=== PATIENT | male | born 1995 | race Caucasian/White ===

== ENCOUNTER 2020-08-19 20:17 | Emergency (ER) | payer OTHER ==
[2020-08-19 20:29] VITALS: BP 159/93; PULSE 89; TEMP 97.2; BMI 30.3
--- OUTSIDE RECORDS SUMMARY | 2020-08-19 20:45 | XMS ---
:1995 Author Organization [facility] Support Name Relationship Address Phone [employer] Unavailable [address] [place] [address] [place] [address] DENNIS ALONSO MOTHER [address] [place] [address] Re-disclosure Warning The records that you are about to access may contain information from federally- assisted alcohol or drug abuse programs. If such information is present, then the following federally mandated warning applies: This information has been disclosed to you from records protected by federal confidentiality rules (42 CFR part 2). The federal rules prohibit you from making any further disclosure of this information unless further disclosure is expressly permitted by the written consent of the person to whom it pertains or as otherwise permitted by 42 CFR part 2. A general authorization for the release of medical or other information is NOT sufficient for this purpose. The Federal rules restrict any use of the information to criminally investigate or prosecute any alcohol or drug abuse patient.The records that you are about to access may contain highly sensitive health information, the redisclosure of which is protected by Article 27-F of the [facility] Public Health law. If you continue you may haveaccess to information: Regarding HIV / AIDS; Provided by facilities licensed or operated by the [facility] Office of Mental Health; or Provided by the [facility] Office for People With Developmental Disabilities. If such information is present, then the following [facility] mandated warning applies: This information has been disclosed to you from confidential records which are protected by state law. State law prohibits you from making any further disclosure of this information without the specific written consent of the person to whom it pertains, or as otherwise permitted by law. Any unauthorized further disclosure in violation of state law may result in a fine or snf sentence or both. A general authorization for the release of medical or other information is NOT sufficient authorization for further disclosure. Insurance Providers Payer name Policy type / Policy ID Covered Covered constitution party's Policy Plan Coverage type constitution party ID relationship to Nash Information nash ALEX EXC [id number] SP [id number]
--- NOTE | 2020-08-19 21:07 | PDOC ---
History of Present Illness - General Chief Complaint: Foreign Body (FB) Stated Complaint: PAIN IN LT HAND History Source: Patient Exam Limitations: No Limitations - History of Present Illness Initial Comments: 08/19/20 21:01 Patient is a 25-year-old male with no past medical history here with complaints of foreign body in his left index finger. States that 2 week ago he was hitting a metallic object with a hammer when the hammer slipped on a piece of sharp from the metallic object got lodged in his finger. States that initially did not think that there was anything here but when he touched the area he had pain. He opened the area with a razor after a few days of the injury but was unable to get this foreign body out. The area was healing and the pain was resolving but mother insisted on him going to have it evaluated. He therefore went to urgent care today, x-ray was done, foreign body noted, and so that the area was opened again. At the urgent care they were unable to retrieve the foreign body. Patient was discharged from urgent care with the promise that they will arrange for the patient to go to a hand specialist. Patient states that he could not wait for tomorrow and so has come to the emergency room for further evaluation and to see a hand specialist. Tetanus is up-to-date. PMHX: as above ALL: NKDA GENERAL/CONSTITUTIONAL: [No fever or chills. No weakness. No weight change.] HEAD, EYES, EARS, NOSE AND THROAT: [No change in vision. No ear pain or discharge. No sore throat.] MUSCULOSKELETAL: [No joint or muscle swelling or pain. No neck or back pain.] SKIN AND BREASTS: [No rash or easy bruising.] NEUROLOGIC: [No headache, vertigo, loss of consciousness, or loss of sensation.] ENDOCRINE: [No increased thirst. No abnormal weight change.] HEMATOLOGIC/LYMPHATIC: [No anemia, easy bleeding, or history of blood clots.] ALLERGIC/IMMUNOLOGIC: [No hives or skin allergy. No latex allergy.] GENERAL: [The patient is awake, alert, and fully oriented, in no acute dist ress.] HEAD: [Normal with no signs of trauma.] EYES: [Pupils equal, round and reactive to light, extraocular movements intact, sclera anicteric, conjunctiva clear.] EXTREMITIES: [Normal range of motion, no edema. No clubbing or cyanosis. Tenderness over the base of the PIP with a 1.5 cm incision. no erythema, NEUROLOGICAL: [Cranial nerves II through XII grossly intact. Normal speech, normal gait.] PSYCH: [Normal mood, normal affect.] SKIN: [Warm, Dry, normal turgor, no rashes or lesions noted.] Past History - Medical History Allergies/Adverse Reactions: Allergies Allergy/AdvReac Type Severity Reaction Status Date / Time No Known Allergies Allergy Verified 08/19/20 22:29 COPD: No - Surgical History Cholecystectomy: Yes - Psycho-Social/Smoking History Smoking History: Never smoked - Substance Abuse Hx (Audit-C & DAST Scrn) How often the patient has a drink containing alcohol: Monthly or less Score: In Men: 4 or > Positive; In Women: 3 or > Positive: 1 Screen Result (Pos requires Nsg. Audit-10AR): Negative *Physical Exam - Vital Signs Last Vital Signs Temp Pulse Resp BP Pulse Ox 97.2 F L 89 20 159/93 97 08/19/20 20:25 08/19/20 20:25 08/19/20 20:25 08/19/20 20:25 08/19/20 20:25 ED Treatment Course - RADIOLOGY Radiology Studies Ordered: Category Date Time Status HAND- LEFT [RAD] Stat Radiology 08/19/20 21:01 Ordered Medical Decision Making - Medical Decision Making 08/19/20 21:01 Patient is a 25-year-old male with no past medical history here with complaints of foreign body in his left index finger. States that 2 week ago he was hitting a metallic object with a hammer when the hammer slipped on a piece of sharp from the metallic object got lodged in his finger. States that initially did not think that there was anything here but when he touched the area he had pain. He opened the area with a razor after a few days of the injury but was unable to get this foreign body out. The area was healing and the pain was resolving but mother insisted on him going to have it evaluated. He therefore went to urgent care today, x-ray was done, foreign body noted, and so that the area was opened again. At the urgent care they were unable to retrieve the foreign body. Patient was discharged from urgent care with the promise that they will arrange for the patient to go to a hand specialist. Patient states that he could not wait for tomorrow and so has come to the emergency room for further evaluation and to see a hand specialist. Tetanus is up-to-date. X-ray right hand for foreign body. Foreign body noted at the base of the PIP. Explored the existing opening for foreign body and unable to find it. I instructed the patient that he will have to go see the hand surgeon for further evaluation and exploration. Given Keflex 500 mg p.o. Wound was cleaned, bacitracin applied and wound dressed. I discussed the physical exam findings, ancillary test results and final d iagnoses with the patient. I answered all of the patient's questions. The patient was satisfied with the care received and felt comfortable with the discharge plan and treatment plan. The Patient agrees to follow up with the primary care physician within 24-72 hours. Discharge - Discharge Information Problems reviewed: Yes Clinical Impression/Diagnosis: Foreign body (FB) in soft tissue Condition: Stable Disposition: HOME - Follow up/Referral - Patient Discharge Instructions Patient Printed Discharge Instructions: DI for Removal of Foreign Body From Skin Additional Instructions: Your Discharge Instructions: You must call primary care physician within 24 hours to arrange follow-up. Return to the Emergency Department with any new, persistent or worsening symptoms, for fever, chills, SOB, dizziness or any other concerning changes that may occur. Follow up with the Hand specialist. - Post Discharge Activity
[2020-08-19] MEDS ORDERED: CEPHALEXIN MONOHYDRATE 500 MG CAPSULE (UD) PO ONE (22:18)
[2020-08-19] MEDS ORDERED: CEPHALEXIN MONOHYDRATE 500 MG CAPSULE (UD) ONE (22:24)
== END 2020-08-19 22:32 | disposition home or self-care (01) ==
LOC: JERFT 20:17
DX: M79.5 Residual foreign body in soft tissue (principal)
CPT/HCPCS: 73130-TC-LT-FY; 99283-25

== ENCOUNTER 2021-06-01 08:30 | Emergency (ER) | payer OTHER ==
[2021-06-01 08:40] VITALS: BP 130/77; PULSE 79; TEMP 98.1; BMI 30.3
[2021-06-01] MEDS ORDERED: FLUORESCEIN NA 1 EA STRIP OD ONE (09:09)
[2021-06-01] MEDS ORDERED: FLUORESCEIN NA 1 EA STRIP ONE (09:24)
== END 2021-06-01 11:05 | disposition home or self-care (01) ==
LOC: JER 08:30
DX: H44.721 Retained (nonmagnetic) (old) foreign body in iris or ciliary body, right eye (principal)
CPT/HCPCS: 99283-25